=== PATIENT | female | born 1965 | race Caucasian/White ===

== ENCOUNTER 2017-02-11 07:52 | Outpatient (CLI) | payer OTHER | END 2017-02-11 20:25 | disposition home or self-care (01) | LOC: MRD 07:52 | PROVIDERS: ATTEND Family Medicine | DX: M79.672 Pain in left foot (principal); M79.671 Pain in right foot; M25.551 Pain in right hip; M25.552 Pain in left hip | CPT/HCPCS: 73630 ==

== ENCOUNTER 2017-05-27 08:55 | Outpatient (CLI) | payer OTHER ==
[2017-05-27 09:35] LABS: BASOPHILS # (AUTO) 0.1 K/uL (0.00-0.22); BASOPHILS % (AUTO) 3.7 % (0.0-2.0); EOSINOPHILS # (AUTO) 0.1 K/uL (0-0.4); EOSINOPHILS % (AUTO) 3.6 % (0.0-4.0); HEMATOCRIT 36.5 % (36-48); LYMPHOCYTES # (AUTO) 1.6 K/uL (2.5-16.5); LYMPHOCYTES % (AUTO) 43.9 % (20.5-51.1); MEAN CORPUSCULAR HEMOGLOBIN 30 pg (27-31); MEAN CORPUSCULAR HGB CONC 33 g/dL (33-37); MEAN CORPUSCULAR VOLUME 93 fL (80-94); MONOCYTES # (AUTO) 0.3 K/uL (0.8-1.0); MONOCYTES % (AUTO) 8.1 % (1.7-9.3); NEUTROPHILS # (AUTO) 1.4 K/uL (1.8-7.7); NEUTROPHILS % (AUTO) 40.7 % (42.2-75.2); PLATELET COUNT (AUTO) 257 K/uL (140-450); RED BLOOD CELL COUNT(AUTO) 3.95 MIL/uL (4.20-5.40); WHITE BLOOD COUNT (AUTO) 3.5 K/uL (4.8-10.8)
[2017-05-27 09:53] LABS: ANION GAP 8.9 (8-16); BILIRUBIN,DIRECT 0.1 mg/dL (0.0-0.3); CARBON DIOXIDE 30.2 mmol/L (21-32); CHOL/HDL RATIO 3.2 (1-4.5); CREATININE 1.2 mg/dL (0.6-1.3); FREE T4 (FREE THYROXINE) 0.95 ng/dL (0.76-1.46); POTASSIUM 5.1 mmol/L (3.5-5.1); THYROID STIMULATING HORMONE 3.61 uIU/mL (0.34-3.74); TOTAL BILIRUBIN 0.4 mg/dL (0.0-1.0)
[2017-05-28 06:22] LABS: HEPATITIS A ANTIBODY IGM Negative (Negative); HEPATITIS B SURFACE ANTIGEN Negative (Negative)
[2017-05-28 09:14] LABS: FOLIC ACID > 20.00 ng/mL (>3.0)
== END 2017-05-27 20:34 | disposition home or self-care (01) ==
LOC: MLB 08:55
PROVIDERS: ATTEND Family Medicine
DX: Z01.419 Encounter for gynecological examination (general) (routine) without abnormal findings (principal); Z11.3 Encounter for screening for infections with a predominantly sexual mode of transmission
CPT/HCPCS: 36415; 80053; 80074; 80076; 82306; 82607; 82746; 84439; 84443; 85025; 86702

== ENCOUNTER 2018-06-12 08:46 | Outpatient (CLI) | payer OTHER ==
[2018-06-12 09:16] LABS: BASOPHILS % (AUTO) 0.7 % (0.0-2.0); EOSINOPHILS # (AUTO) 0.1 K/uL (0-0.4); EOSINOPHILS % (AUTO) 3.7 % (0.0-4.0); HEMATOCRIT 38.7 % (36-48); HEMOGLOBIN 12.9 g/dL (12.0-16.0); LYMPHOCYTES # (AUTO) 1.1 K/uL (2.5-16.5); LYMPHOCYTES % (AUTO) 35.2 % (20.5-51.1); MEAN CORPUSCULAR HEMOGLOBIN 31 pg (27-31); MEAN CORPUSCULAR HGB CONC 33 g/dL (33-37); MONOCYTES # (AUTO) 0.3 K/uL (0.8-1.0); MONOCYTES % (AUTO) 8.4 % (1.7-9.3); NEUTROPHILS # (AUTO) 1.7 K/uL (1.8-7.7); PLATELET COUNT (AUTO) 257 K/uL (140-450); RED BLOOD CELL COUNT(AUTO) 4.11 MIL/uL (4.20-5.40); RED CELL DISTRIBUTION WIDTH 12.6 % (11.6-13.7); WHITE BLOOD COUNT (AUTO) 3.2 K/uL (4.8-10.8)
[2018-06-12 16:12] LABS: ALBUMIN 4.1 g/dL (3.4-5.0); CARBON DIOXIDE 27.1 mmol/L (21-32); CHOL/HDL RATIO 3.5 (1-4.5); POTASSIUM 4.1 mmol/L (3.5-5.1); TOTAL BILIRUBIN 0.3 mg/dL (0.0-1.0)
[2018-06-12 16:46] LABS: URIC ACID 5.8 mg/dL (2.6-7.2)
== END 2018-06-12 19:57 | disposition home or self-care (01) ==
LOC: MLB 08:46
PROVIDERS: ATTEND Family Medicine
DX: M19.041 Primary osteoarthritis, right hand (principal)
CPT/HCPCS: 36415; 73130; 80053; 83520; 84550; 85025; 85651; 86038; 86140; 86430

== ENCOUNTER 2018-11-08 06:55 | Emergency (ER) | payer OTHER ==
[~2018-11-08] VITALS: Ht 165.1 cm; Wt 79.4 kg
--- NOTE | 2018-11-08 06:55 | NUR ---
PT AMBULATED TO BED #10
--- NOTE | 2018-11-08 06:56 | NUR ---
EKG PERFORMED AT BEDSIDE WITH SPOUSE PRESENT. PT COVERED IN GOWN DURING PROCEDURE
[2018-11-08] MEDS ORDERED: ASPIRIN 81 MG TAB.CHEW PO ONE (07:00)
[2018-11-08] MEDS ORDERED: NACL 0.9% 1,000 ML IV ONE (07:00)
[2018-11-08 07:01] VITALS: BP 149/83
--- NOTE | 2018-11-08 07:05 | NUR ---
PATIENT PRESENTS TO ED WITH C/O OF CHEST PAIN. PAIN RADIATES TO THE RIGHT SIDE OF CHEST AND TO THE BACK. PT IS A/OX4. ONSET OF PAIN STARTED LAST NIGHT. PATIENT POSITIONED FOR COMFORT; HOB ELEVATED; BEDRAILS UP X2; BED DOWN. ER MD MADE AWARE OF PT STATUS.
--- NOTE | 2018-11-08 07:17 | NUR ---
GAVE REPORT TO RN STEPHAN AT BEDSIDE, FOR CONTINUITY OF CARE. PT IN STABLE CONDITION.
[2018-11-08 07:19] LABS: BASOPHILS % (AUTO) 0.6 % (0.0-2.0); EOSINOPHILS # (AUTO) 0.1 K/uL (0-0.4); EOSINOPHILS % (AUTO) 3.6 % (0.0-4.0); HEMATOCRIT 37.3 % (36-48); HEMOGLOBIN 12.4 g/dL (12.0-16.0); LYMPHOCYTES # (AUTO) 1.3 K/uL (2.5-16.5); LYMPHOCYTES % (AUTO) 36.3 % (20.5-51.1); MEAN CORPUSCULAR HEMOGLOBIN 31 pg (27-31); MEAN CORPUSCULAR HGB CONC 33 g/dL (33-37); MONOCYTES # (AUTO) 0.4 K/uL (0.8-1.0); MONOCYTES % (AUTO) 12.2 % (1.7-9.3); NEUTROPHILS # (AUTO) 1.7 K/uL (1.8-7.7); NEUTROPHILS % (AUTO) 47.3 % (42.2-75.2); PLATELET COUNT (AUTO) 257 K/uL (140-450); RED BLOOD CELL COUNT(AUTO) 4.01 MIL/uL (4.20-5.40); WHITE BLOOD COUNT (AUTO) 3.6 K/uL (4.8-10.8)
[2018-11-08] MEDS ORDERED: MORPHINE SULFATE 4 MG/ML SYR IVP ONE ×2 (07:25→09:00)
[2018-11-08] MEDS ORDERED: ONDANSETRON 4 MG/2 ML VIAL IVP ONE (07:25)
[2018-11-08 07:36] LABS: ANION GAP 12.7 (8-16); CARBON DIOXIDE 26.7 mmol/L (21-32); CREATININE 1.2 mg/dL (0.6-1.3); POTASSIUM 4.4 mmol/L (3.5-5.1); TOTAL BILIRUBIN 0.7 mg/dL (0.0-1.0)
--- NOTE | 2018-11-08 07:42 | NUR ---
PT PRESENTS TO ED WITH C/O CHEST PAIN SUDDEN ONSET X 1 DAY. CAP REFILL <3 SECONDS, HEARTS SOUNDS PRESENT AND NORMAL. DENIES SOB. NO EDEMA NOTED TO ALL EXTREMITES. PT PLACED INTO BED, PENDING MD LUNSFORD.
--- NOTE | 2018-11-08 08:11 | NUR ---
AT BEDSIDE. PAIN REDUCED TO 3/10. VSS. WILL CONTINUE TO MONITOR
[2018-11-08 08:35] LABS: D-DIMER < 100 ng/ml (0-400)
--- NOTE | 2018-11-08 09:15 | NUR ---
ORDER RECEIVED FROM MD JODI TOWNSEND TO CHANGE RATE FROM 100 ML/HR TO BOLUS OF NS.
--- NOTE | 2018-11-08 09:16 | NUR ---
INFORMED CONSENT OBTAINED FOR CT WITH CONTRAST. PATIENT TAKEN TO CT VIA WHEELCHAIR
--- NOTE | 2018-11-08 09:28 | NUR ---
PT RETURNED FROM CT
--- NOTE | 2018-11-08 10:35 | NUR ---
ER AT BEDSIDE
[2018-11-08 10:58] VITALS: BP 124/81
--- NOTE | 2018-11-08 10:58 | NUR ---
Patient discharged with v/s stable. Written and verbal after care instructions given and explained. Patient verbalized understanding. Ambulatory with steady gait. All questions addressed prior to discharge. Advised to follow up with PMD.
== END 2018-11-08 10:58 | disposition home or self-care (01) ==
LOC: MED 06:55
DX: M94.0 Chondrocostal junction syndrome [Tietze] (principal); I10 Essential (primary) hypertension; Z87.891 Personal history of nicotine dependence; Z90.49 Acquired absence of other specified parts of digestive tract; Z98.890 Other specified postprocedural states
CPT/HCPCS: 36415; 71045; 71260; 74177; 80053; 84484; 85025; 85379; 85610; 85730; 93005; 96374; 96375; 96376; 99284; J2270; J2405; J7030; Q0092; Q9967

== ENCOUNTER 2019-07-20 08:06 | Outpatient (CLI) | payer OTHER ==
[2019-07-20 08:46] LABS: BASOPHILS % (AUTO) 0.6 % (0.0-2.0); EOSINOPHILS # (AUTO) 0.1 K/uL (0-0.4); EOSINOPHILS % (AUTO) 3.5 % (0.0-4.0); HEMATOCRIT 40.8 % (36-48); HEMOGLOBIN 13.6 g/dL (12.0-16.0); LYMPHOCYTES # (AUTO) 1.4 K/uL (2.5-16.5); LYMPHOCYTES % (AUTO) 37.9 % (20.5-51.1); MEAN CORPUSCULAR HEMOGLOBIN 31 pg (27-31); MEAN CORPUSCULAR HGB CONC 33 g/dL (33-37); MEAN CORPUSCULAR VOLUME 94.3 fL (80-94); MONOCYTES # (AUTO) 0.3 K/uL (0.8-1.0); MONOCYTES % (AUTO) 8.7 % (1.7-9.3); NEUTROPHILS # (AUTO) 1.9 K/uL (1.8-7.7); NEUTROPHILS % (AUTO) 49.3 % (42.2-75.2); PLATELET COUNT (AUTO) 262 K/uL (140-450); RED BLOOD CELL COUNT(AUTO) 4.33 MIL/uL (4.20-5.40); WHITE BLOOD COUNT (AUTO) 3.8 K/uL (4.8-10.8)
[2019-07-20 08:51] LABS: APPEARANCE,URINE CLEAR (CLEAR); BILIRUBIN,URINE NEGATIVE (NEGATIVE); BLOOD, URINE NEGATIVE (NEGATIVE); COLOR,URINE YELLOW (YELLOW); LEUKOCYTE ESTERASE ,URINE NEGATIVE (NEGATIVE); NITRITE, URINE NEGATIVE (NEGATIVE); PH,URINE 6.5 (5.0-9.0); UGLUCOSE NEGATIVE (NEGATIVE)
[2019-07-20 09:08] LABS: ANION GAP 12.7 (8-16); CARBON DIOXIDE 30.3 mmol/L (21-32); CHOL/HDL RATIO 4.2 (1-4.5); THYROID STIMULATING HORMONE 5.65 uIU/mL (0.34-3.74); TOTAL BILIRUBIN 0.3 mg/dL (0.0-1.0)
== END 2019-07-20 22:07 | disposition home or self-care (01) ==
LOC: MUS 08:06
DX: Z00.00 Encounter for general adult medical examination without abnormal findings (principal); R53.83 Other fatigue; M25.512 Pain in left shoulder; K83.8 Other specified diseases of biliary tract
CPT/HCPCS: 36415; 73030; 76700; 80053; 81003; 84443; 85025; 86038; 86430; 87086

== ENCOUNTER 2020-06-05 10:27 | Outpatient (CLI) | payer OTHER ==
[2020-06-05 11:59] LABS: ANION GAP 13.7 (8-16); CARBON DIOXIDE 27.2 mmol/L (21-32); CHOL/HDL RATIO 4.7 (1-4.5); POTASSIUM 3.9 mmol/L (3.5-5.1); THYROID STIMULATING HORMONE 3.72 uIU/mL (0.34-3.74); TOTAL BILIRUBIN 0.5 mg/dL (0.0-1.0)
== END 2020-06-05 20:27 | disposition home or self-care (01) ==
LOC: MLB 10:27
DX: E78.5 Hyperlipidemia, unspecified (principal); R53.83 Other fatigue
CPT/HCPCS: 36415; 80053; 84443

== ENCOUNTER 2020-08-11 10:43 | Outpatient (CLI) | payer OTHER ==
[2020-08-11 11:16] LABS: WHITE BLOOD COUNT (AUTO) 5.1 K/uL (4.8-10.8)
[2020-08-11 11:17] LABS: HEMATOCRIT 39.5 % (36-48); HEMOGLOBIN 13.1 g/dL (12.0-16.0); LYMPHOCYTES % (AUTO) 19.9 % (20.5-51.1); MEAN CORPUSCULAR HEMOGLOBIN 31 pg (27-31); MEAN CORPUSCULAR HGB CONC 33 g/dL (33-37); MEAN CORPUSCULAR VOLUME 92.3 fL (80-94); MONOCYTES % (AUTO) 8.8 % (1.7-9.3); NEUTROPHILS % (AUTO) 68.7 % (42.2-75.2); PLATELET COUNT (AUTO) 241 K/uL (140-450); RED BLOOD CELL COUNT(AUTO) 4.28 MIL/uL (4.20-5.40); RED CELL DISTRIBUTION WIDTH 12.4 % (11.6-13.7)
[2020-08-11 11:18] LABS: BASOPHILS % (AUTO) 0.6 % (0.0-2.0); EOSINOPHILS # (AUTO) 0.1 K/uL (0-0.4); MONOCYTES # (AUTO) 0.4 K/uL (0.8-1.0); NEUTROPHILS # (AUTO) 3.5 K/uL (1.8-7.7)
[2020-08-11 12:01] LABS: ANION GAP 12.7 (8-16); CARBON DIOXIDE 30.3 mmol/L (21-32)
== END 2020-08-11 21:49 | disposition home or self-care (01) ==
LOC: MLB 10:43
DX: T85.44XA Capsular contracture of breast implant, initial encounter (principal); N64.4 Mastodynia; X58.XXXA Exposure to other specified factors, initial encounter
CPT/HCPCS: 36415; 71045; 80048; 85025; 85610; 85730

== ENCOUNTER 2020-12-01 09:39 | Outpatient (CLI) | payer OTHER ==
[2020-12-01 10:22] LABS: BASOPHILS % (AUTO) 0.5 % (0.0-2.0); EOSINOPHILS # (AUTO) 0.1 K/uL (0-0.4); EOSINOPHILS % (AUTO) 2.8 % (0.0-4.0); LYMPHOCYTES # (AUTO) 1.7 K/uL (2.5-16.5); LYMPHOCYTES % (AUTO) 40.9 % (20.5-51.1); MEAN CORPUSCULAR HEMOGLOBIN 30 pg (27-31); MEAN CORPUSCULAR HGB CONC 33 g/dL (33-37); MEAN CORPUSCULAR VOLUME 91.9 fL (80-94); MONOCYTES # (AUTO) 0.3 K/uL (0.8-1.0); MONOCYTES % (AUTO) 8.2 % (1.7-9.3); NEUTROPHILS # (AUTO) 1.9 K/uL (1.8-7.7); NEUTROPHILS % (AUTO) 47.6 % (42.2-75.2); PLATELET COUNT (AUTO) 254 K/uL (140-450); RED BLOOD CELL COUNT(AUTO) 4.36 MIL/uL (4.20-5.40); WHITE BLOOD COUNT (AUTO) 4.1 K/uL (4.8-10.8)
[2020-12-01 10:32] LABS: ANION GAP 10.2 (8-16); CARBON DIOXIDE 29.8 mmol/L (21-32); CREATININE 1.1 mg/dL (0.6-1.3); PROTHROMBIN TIME 10.3 secs (10.8-13.4)
== END 2020-12-01 21:46 | disposition home or self-care (01) ==
LOC: MLB 09:39
DX: Z01.818 Encounter for other preprocedural examination (principal); N64.4 Mastodynia; T85.44XA Capsular contracture of breast implant, initial encounter; X58.XXXA Exposure to other specified factors, initial encounter
CPT/HCPCS: 36415; 71046; 80048; 85025; 85610

== ENCOUNTER 2020-12-08 11:08 | Outpatient (CLI) | payer OTHER ==
[2020-12-08 11:45] LABS: ALBUMIN 4.4 g/dL (3.4-5.0); ANION GAP 7.4 (8-16); CARBON DIOXIDE 32.4 mmol/L (21-32); CHOL/HDL RATIO 2.9 (1-4.5); CREATININE 1.1 mg/dL (0.6-1.3); POTASSIUM 3.8 mmol/L (3.5-5.1); TOTAL BILIRUBIN 0.5 mg/dL (0.0-1.0)
== END 2020-12-08 21:38 | disposition home or self-care (01) ==
LOC: MLB 11:08
DX: E78.49 Other hyperlipidemia (principal); R53.83 Other fatigue
CPT/HCPCS: 36415; 80053